=== PATIENT | male | born 1940 | race African-American/Black ===

== ENCOUNTER 2019-01-20 09:25 | Emergency (ER) | payer MEDICARE, MEDICAID ==
[~2019-01-20] VITALS: Ht 172.7 cm; Wt 74.8 kg
[~2019-01-20 09:25] MED LIST: BENADRYL50 MG ORAL; PREDNISONE20 M1 PO; RANITIDINE HCL150 MG ORAL
[2019-01-20 09:37] VITALS: BP 141/74
--- NOTE | 2019-01-20 09:37 | NUR ---
ED Nurse Note: Patient walked in to ER from home due to allergic reaction x2 dyas. Noted with swelling and redness on right eye. As per pt, he might have eaten some almonds that causes his eye to swell. Denies SOB and hives. Pt is c/o slight blurring of vision on his right eye. VSS.
[2019-01-20] MEDS ORDERED: BENAZEPRIL HCL20 MG ORAL (09:38)
[2019-01-20] MEDS ORDERED: FLOMAX0.4 MG ORAL (09:38)
--- NOTE | 2019-01-20 10:29 | Emergency Room Report ---
History of Present Illness General Chief Complaint: Allergic Reaction Source: Patient Present Illness HPI Disclaimer: Please note that this report is being documented using [employer] technology. This can lead to erroneous entry secondary to incorrect interpretation by the dictating instrument. HPI: 78-year-old male presents for evaluation of right eye pain and rash. Symptoms began 2 days ago. Noted blistering and swelling around his right eye. Noted some pain in the right eye but little discharge. Denies pain with extraocular movements or changes in his vision. No recent trauma reported. Denies fever or chills. Has noted sinus congestion and a sore throat recently. Denies chest pain or shortness of breath or vomiting. Has not received a shingles vaccine and did not have chickenpox as a child. Rash appears to be getting worse as is the eye swelling. PMH: BPH, hypertension PSH: Denies Allergies: Almonds Social Hx: Denies drug or alcohol abuse Allergies: Coded Allergies: [place] (Unverified Allergy, Unknown, 03/28/14) Pistachio (Unverified Allergy, Unknown, 03/28/14) Nursing Documentation-PMH Past Medical History: No History, Except For Hx Hypertension: Yes Hx COPD: Yes Hx Cancer: Yes - prostate Review of Systems All Other Systems: negative except mentioned in HPI Physical Exam Vital Signs Date Time Temp Pulse Resp B/P (MAP) Pulse Ox O2 Delivery O2 Flow Rate FiO2 01/20/19 09:33 98.2 86 16 141/74 (96) 96 Room Air General: Awake and alert, no acute distress HEENT: NC/AT. There is a vesicular rash over the right forehead that does not cross the midline. EOMI. PERRLA. There is mild edema over the right maxilla but does not involve the upper or lower eyelid. Patient is able to open his right eye. No conjunctival injection, no hyphema, no hypopyon. Wood's lamp examination: Negative Jesusita sign, no abrasions, no ulcers, no dendrites, no vesicles bilaterally. No vesicles seen on the tympanic membranes. No vesicles or lesions over the nares. Pharynx is erythematous but without vesicles, no exudate, no edema, uvula is midline. Neck: Supple, trachea midline Chest Wall: No tenderness, no deformity Cardiovascular: RRR. S1 and S2 normal. No murmur appreciated Resp: Normal work of breathing. No cough, wheezing or crackles appreciated Skin: Vesicular rash over the right forehead that does not cross the midline. Some crusting over the vesicles. Erythematous base but no confluence. No urticaria. MSK: Normal tone and bulk. Moving all extremities. No obvious deformity. Neuro: Awake and alert. Mentating appropriately. Medical Decision Making Diagnostic Impression: Primary Impression: Zoster Additional Impression: Shingles ER Course This is a 78-year-old male presenting for evaluation of right eye swelling. The patient appears to have a zoster infection over V1 distribution on the right side. Does not involve the orbit at this time and is predominantly over the forehead above the eyebrow. Physical exam of the eyes shows intact visual gamboa, no edema, no dendrites and no vesicles. No evidence of Kaitlin Metcalf syndrome either. Symptoms have been present for approximately 2 days over there is some crusting over the vesicles already. We will start felt sickle of your throat 3 times daily and the patient will follow up with Dr. Grover for urgent ophthalmology follow-up. He will call the office once he is discharged. Dr. Grover's office is expecting his call. We discussed reasons to return to the emergency department as well as contact precautions for him and those around him. He understands and agrees with this treatment plan will be discharged home. Last Vital Signs Date Time Temp Pulse Resp B/P (MAP) Pulse Ox O2 Delivery O2 Flow Rate FiO2 01/20/19 09:37 98.2 86 16 141/74 96 Room Air Disposition: HOME, SELF-CARE Condition: Stable Scripts Valacyclovir Hcl* (VALTREX*) 500 Mg Tablet 1000 MG ORAL TID for 10 Days, #60 TAB Prov: Martín Saunders MD 01/20/19 Referrals: NON PHYSICIAN (PCP) Martín Saunders MD Jan 20, 2019 10:29
[2019-01-20] MEDS ORDERED: Fluorescein Strips BOTH EYES ONE (10:30)
[2019-01-20] MEDS ORDERED: VALACYCLOVIR500 MG ORAL (11:25)
[2019-01-20 11:32] VITALS: BP 132/68
--- NOTE | 2019-01-20 11:32 | NUR ---
ER DISCHARGE NOTE: Patient is cleared to be discharged per ERMD, pt is aox4, on room air, with stable vital signs. pt was given dc and prescription instructions, pt was able to verbalize understanding, pt id band removed. pt is able to ambulate with steady gait. pt took all belongings.
== END 2019-01-20 11:32 | disposition home or self-care (01) ==
LOC: EMR 10:00
DX: B02.9 Zoster without complications (principal); H57.11 Ocular pain, right eye; J44.9 Chronic obstructive pulmonary disease, unspecified; Z85.46 Personal history of malignant neoplasm of prostate
CPT/HCPCS: 99283